=== PATIENT | female | born 1965 | race African-American/Black ===

== ENCOUNTER 2016-11-24 06:36 | Emergency (ER) | payer BC ==
[~2016-11-24] VITALS: Ht 167.6 cm; Wt 95.5 kg
[2016-11-24] MEDS ORDERED: TRUVADA1 TABLET PO (07:15)
[2016-11-24] MEDS ORDERED: NORVIR100 M1 PO (07:16)
[2016-11-24] MEDS ORDERED: REYATAZ300 MG PO (07:16)
[2016-11-24 07:28] LABS: HEMATOCRIT 38.8 % (36.0-46.0); MCH 30.8 PG (29.0-34.0); MCV 93.3 FL (83-99); MEAN PLAT.VOLUME 10.1 uM^3 (9.5-12.4); PLATELET COUNT 228 K/uL (156-360); RBC DIS.WIDTH-CV 12.2 % (11.8-14.6); RBC DIS.WIDTH-SD 40.4 % (39-53); RED BLOOD COUNT 4.16 M/uL (3.80-5.20); WHITE BLOOD COUNT 4.3 K/uL (4.1-10.2)
[2016-11-24 07:56] LABS: ANION GAP 7 MEQ/L (2-14); CHLORIDE 102 MEQ/L (99-109); POTASSIUM 3.8 MEQ/L (3.7-5.4); SAMPLE HEMOLYSIS CHECK 0; SAMPLE ICTERIC CHECK 0; SAMPLE LIPEMIA CHECK 0; SODIUM 140 MEQ/L (136-147); TOTAL BILIRUBIN 2.5 MG/DL (0.0-1.0)
[2016-11-24 08:02] LABS: ALKALINE PHOSPHATASE 68 IU/L (3-129); GFR ESTIMATE (CALCULATED) > 59 mL/min/; GLUCOSE 102 mg/dL (70-99); UREA NITROGEN (BUN) 9 mg/dL (9-23)
[2016-11-24 08:05] LABS: QUANTITATIVE HCG < 4.0 MIU/ML
[2016-11-24 08:24] LABS: ADD MIUA? YES; BILIRUBIN NEGATIVE; BLOOD NEGATIVE; COLOR YELLOW ((YELLOW)); GLUCOSE (STRIP) NEGATIVE; KETONES NEGATIVE; LEUKOCYTES NEGATIVE; NITRITE NEGATIVE; PROTEIN (STRIP) TRACE; SPECIFIC GRAVITY 1.021 (1.000-1.030); UROBILINOGEN 0.2 MG/DL (0.2-1.0)
[2016-11-24 08:48] LABS: BACTERIA RARE /HPF; CASTS NONE SEEN /LPF; CRYSTALS NONE SEEN; EPITHELIAL CELLS 1+ /HPF; MUCUS NONE SEEN /LPF; RED BLOOD CELLS 0-5 /HPF (0-5); UCUL ADDED? NO; WHITE BLOOD CELLS 0-5 /HPF (0-5)
[2016-11-24] MEDS ORDERED: COLACE100 MG PO (09:30)
[2016-11-24] MEDS ORDERED: NAPROSYN500 MG PO (09:30)
[2016-11-24 09:41] VITALS: BP 111/77
== END 2016-11-24 09:46 | disposition home or self-care (01) ==
LOC: EME 06:36
DX: R10.31 Right lower quadrant pain (principal); K59.00 Constipation, unspecified; Z90.710 Acquired absence of both cervix and uterus
CPT/HCPCS: 74020; 76856; 80053; 81003; 84702; 85027; 99281; 99284; J1885